=== PATIENT | male | born 2000 | race Caucasian/White ===

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

== ENCOUNTER 2022-05-07 16:24 | Outpatient (REF) | payer MEDICAID, SELFPAY | END 2022-05-07 16:25 | disposition home or self-care (01) | LOC: LBN 16:24 | PROVIDERS: PCP Pediatrics; Referring Provider Student in an Organized Health Care Education/Training Program; Visit Provider Student in an Organized Health Care Education/Training Program | DX: J02.9 Acute pharyngitis, unspecified (principal) | CPT/HCPCS: 87070 ==